=== PATIENT | female | born 1990 | race Caucasian/White ===

== ENCOUNTER 2016-12-08 09:20 | Emergency (ER) | payer SELFPAY ==
[~2016-12-08] VITALS: Ht 167.6 cm; Wt 61.2 kg
[2016-12-08 09:58] VITALS: BP 140/78
--- NOTE | 2016-12-08 11:03 | PHYS DOC ---
Past Medical History Past Medical History: No Pertinent History Past Surgical History: Tonsillectomy Additional Information: 1 PACK/EVERY 3 DAYS Alcohol Use: Occasionally Drug Use: None Adult General Chief Complaint Chief Complaint: FOREIGN BODY VAGINA HPI HPI Patient is a 26 year old female who presents with retained foreign body in the vagina. She has been using a Diva cup for her menstrual cycles. She inserted the cup last night and was unable to remove it this morning. She has mild pelvic cramping without any other complaints. Her menstrual cycle started on . She is . She does not have a PCP. Review of Systems Review of Systems Constitutional: Denies fever or chills. [] GI: Denies abdominal pain, nausea, vomiting, bloody stools or diarrhea. [] : Denies dysuria, hematuria or urinary frequency. Reports mild pelvic cramping and retained vaginal foreign body. Musculoskeletal: Denies back pain or joint pain. [] Integument: Denies rash or skin lesions. [] Allergies Allergies Allergies Coded Allergies Type Severity Reaction Last Updated Verified No Known Drug Allergies 12/08/16 No Physical Exam Physical Exam Constitutional: Well developed, well nourished, no acute distress, non-toxic appearance. [] HENT: Normocephalic, atraumatic, oropharynx moist. [] Eyes: PERRLA, EOMI, conjunctiva normal, no discharge. [] Neck: Normal range of motion, no tenderness, supple, no stridor. [] Cardiovascular: Heart rate regular rhythm, no murmur. [] Lungs & Thorax: Bilateral breath sounds clear to auscultation without wheezes, rales, or rhonchi. [] Abdomen: Bowel sounds normal, soft, no tenderness, no masses, no pulsatile masses. [] Female : optical technician present during exam. Normal external genitalia. There is a plastic cup present in the vagina with suction over the cervix. There is moderate blood in the vagina. There is no cervicitis or CMT. The cervical os is closed. Skin: Warm, dry, no erythema, no rash. [] Neurologic: Alert and oriented X 3, normal motor function, normal sensory function, no focal deficits noted. [] Psychologic: Affect normal, judgement normal, mood normal. [] Current Patient Data Vital Signs Vital Signs Date Time Temp Pulse Resp B/P Pulse Ox O2 Delivery O2 Flow Rate FiO2 3/27/17 09:58 98.7 90 20 140/78 99 Room Air 98.7 EKG EKG [] Radiology/Procedures Radiology/Procedures [] Course & Med Decision Making Course & Med Decision Making Pertinent Labs and Imaging studies reviewed. (See chart for details) The retained foreign body was removed using ring forceps. The patient tolerated the procedure well. There were no complications. Return precautions were discussed. The patient verbalizes understanding and agrees with plan. Dragon Disclaimer Dragon Disclaimer This electronic medical record was generated, in whole or in part, using a voice recognition dictation system. Departure Departure Impression: Primary Impression: Foreign body in vagina Disposition: HOME, SELF-CARE Condition: STABLE Referrals: NO PCP (PCP) Patient Instructions: Vaginal Foreign Body, [id number] Additional Instructions: The Diva cup was removed without complications. 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 Return to the emergency department if you have any new or concerning symptoms. Problem Qualifiers Primary Impression: Foreign body in vagina Encounter type: initial encounter Qualified Code: T19.2XXA - Foreign body in vulva and vagina, initial encounter ROHAN STEVENSON Dec 08, 2016 11:03
== END 2016-12-08 11:10 | disposition home or self-care (01) ==
LOC: ER 09:20
DX: T19.2XXA Foreign body in vulva and vagina, initial encounter (principal); F17.200 Nicotine dependence, unspecified, uncomplicated; X58.XXXA Exposure to other specified factors, initial encounter; Y93.89 Activity, other specified; Y92.89 Other specified places as the place of occurrence of the external cause; Y99.8 Other external cause status
CPT/HCPCS: 99283